=== PATIENT | male | born 2000 | race Caucasian/White ===

== ENCOUNTER 2020-05-16 11:35 | Emergency (ER) | payer BC, SELFPAY ==
[2020-05-16 11:38] VITALS: BP 151/105; PULSE 97; RESP 18; TEMP 35.9; O2SAT 100
--- NOTE | 2020-05-16 11:55 | PC.NURSE ---
Spoke with [place] poison control they recommended a full decontamination shower to 15 min. ADOLFO Alvarado notified.
--- NOTE | 2020-05-16 12:25 | PC.NURSE ---
Pts clothing removed and taken to decontamination shower and rinsed with soap and water for 15min. Pt placed in clean gown and socks. Denies any irritation to eyes. Mild tingling noted to tongue
--- NOTE | 2020-05-16 13:14 | ED.GENADULT ---
HPI - General Adult General Chief complaint: Environmental Exposure Stated complaint: weed killer exposure Time Seen by Provider: 05/16/20 12:02 Source: patient Mode of arrival: ambulatory Limitations: no limitations History of Present Illness HPI narrative: This patient is a 20 year old male who presents for evaluation of chemical exposure. PAtient was working and the container of weed killer ruptured. THis caused the chemical to get onto his clothes and his face. He reports mild sense of tongue ad mouth feel care manager than normal. HE denies eye irritation or blurred vision. He denies chest pain or sob. On arrival to ER , nursing staff called poison control and patient was decontaminated with a shower for 15 minutes. The chemical was found to be 43% glyphosate Plus [place] Preventer. Related Data Allergies Allergy/AdvReac Type Severity Reaction Status Date / Time No Known Allergies Allergy Unverified 01/04/19 16:46 Review of Systems Review of Systems: All systems reviewed & are unremarkable except as noted in HPI and below PMFSH Past Medical History Medical History (Updated 05/16/20 @ 13:21 by Domenica Morales MD) Patient denies medical problems Surgical History Surgical History (Updated 05/16/20 @ 13:18 by Domenica Morales MD) No history of previous surgery Social History Social History (Updated 05/16/20 @ 13:18 by Domenica Morales MD) Smoking status: Never smoker Alcohol intake: never Gender identity (if verbalized by the patient): Male Exam Narrative: Exam Narrative: GENERAL: Well-appearing, well-nourished, and in no acute distress.obese HEAD: Normocephalic, atraumatic EYES: PERRLA and EOMI, conjunctiva clear without discharge NOSE: Nares clear, no rhinorrhea or epistaxis THROAT:Mucous membranes moist, Oropharynx normal without erythema, exudate, peritonsillar swelling or fluctuance NECK: Supple, without lymphadenopathy or mass RESPIRATORY: No respiratory distress, Airway patent, Respirations non-labored, Clear to auscultation without rales, rhonchi or wheeze HEART: Regular rate and rhythm. No murmur heard. Normal peripheral pulses. ABDOMEN: Soft, nontender, nondistended, normal active bowel sounds. No masses. No rebound or guarding, No organomegaly. EXTREMITIES: No edema, normal strength with full range of motion. SKIN: Warm, dry, normal color without rash NEURO: Alert and oriented x3. CN 2-12 grossly intact. No focal deficits. PSYCH: Normal mood and affect. Course Reevaluation(s) Reevaluation #1: PAtient has no complaints. He has normal visual acuity with no eye complaints. Date: 05/16/20 Time: 13:18 Vital Signs Vital signs: Vital Signs Temperature 96.6 F L 05/16/20 11:38 Pulse Rate 97 05/16/20 11:38 Respiratory Rate 18 05/16/20 11:38 Blood Pressure 151/105 H 05/16/20 11:38 Pulse Oximetry 100 05/16/20 11:38 Temperature 98 F 05/16/20 13:28 Pulse Rate 70 05/16/20 13:28 Respiratory Rate 18 05/16/20 13:28 Blood Pressure 142/86 H 05/16/20 13:28 Pulse Oximetry 97 05/16/20 13:28 Medical Decision Making Vital Signs Vital Signs: Vital Signs Temperature 96.6 F L 05/16/20 11:38 Pulse Rate 97 05/16/20 11:38 Respiratory Rate 18 05/16/20 11:38 Blood Pressure 151/105 H 05/16/20 11:38 Pulse Oximetry 100 05/16/20 11:38 Temperature 98 F 05/16/20 13:28 Pulse Rate 70 05/16/20 13:28 Respiratory Rate 18 05/16/20 13:28 Blood Pressure 142/86 H 05/16/20 13:28 Pulse Oximetry 97 05/16/20 13:28 Discharge Plan Discharge Clinical Impression: Chemical exposure Patient Disposition: Home, Self-Care Condition: Stable Instructions: Antibiotic Form, Chemical Eye Apple (ED), Chemical Skin Burn (ED) Additional Instructions: If this occurs again, remove clothing and wash out your eyes. Follow up with your primary care physician as needed. Follow-up/Referrals: PHYSICIAN,SUPERVISOR OF COMMUNICATIONS [Primary Care Provider] -
[2020-05-16 13:28] VITALS: BP 142/86; PULSE 70; RESP 18; TEMP 36.6; O2SAT 97
== END 2020-05-16 13:29 | disposition home or self-care (01) ==
PROVIDERS: Emergency Provider General Practice
DX: Z57.4 Occupational exposure to toxic agents in agriculture (principal)
CPT/HCPCS: 99281

== ENCOUNTER 2021-05-24 01:22 | Emergency (ER) | payer OTHER, SELFPAY ==
--- NOTE | ~2021-05-24 | XR_ITS ---
XR forearm RT 2V DATE: 05/24/2021 02:13 INDICATION: Auger fell on arm. Diffuse forearm pain and ecchymosis TECHNIQUE: AP and lateral views COMPARISON: None FINDINGS: No fracture or dislocation, periosteal reaction or bone destruction. Normal alignment at th e elbow and wrist joints. No subcutaneous emphysema or radiopaque soft tissue foreign body. IMPRESSION: Negative Reviewed, dictated and finalized at location A. IMPRESSION: Negative
--- NOTE | ~2021-05-24 | XR_ITS ---
XR forearm LT 2V DATE: 05/24/2021 02:13 INDICATION: Auger fell on arm. Diffuse forearm pain, ecchymosis. TECHNIQUE: AP and lateral views COMPARISON: None FINDINGS: No fracture or dislocation, periosteal reaction or bone destruction. Normal alignment at th e elbow and wrist joint. No radiopaque foreign body or subcutaneous emphysema is detected. IMPRESSION: Negative Reviewed, dictated and finalized at location A. IMPRESSION: Negative
[2021-05-24 01:23] VITALS: BP 136/80; PULSE 80; RESP 18; TEMP 36.3; O2SAT 100
--- NOTE | 2021-05-24 01:47 | ED.UPPEXIN ---
HPI - Extremity Injury (Upper) General Chief Complaint: Extremity Injury, Upper Stated Complaint: norman arm injuries Time Seen by Provider: 05/24/21 01:43 Source: patient History of Present Illness HPI narrative: Patient was at work when he slipped and fell and had 3 augers fall onto his arms. He reports pain to his bilateral arms where the augers hit him pain is achy, constant, worse with moving his arms. 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 Denies any focal areas of numbness or weakness. Related Data Home Medications Medication Instructions Recorded Confirmed No Home Medications 05/24/21 05/24/21 Allergies Allergy/AdvReac Type Severity Reaction Status Date / Time peanut Allergy Difficulty Verified 05/24/21 01:31 Breathing Review of Systems Review of Systems: CONSTITUTIONAL: Denies fever, chills, or sweats. EYES: Denies visual changes, redness, or discharge. CARDIOVASCULAR: Denies chest pain, palpitations, or edema. RESPIRATORY: Denies cough or dyspnea. GASTROINTESTINAL: Denies abdominal pain, nausea, vomiting, or diarrhea. SKIN: Denies rash or itching. MUSCULOSKELETAL: Denies back pain, joint pain, or myalgia. NEUROLOGIC: Denies headache, numbness, dizziness, or weakness. [facility] Past Medical History Medical History Patient denies medical problems Surgical History Surgical History No history of previous surgery Social History Social History Smoking status: Never smoker Alcohol intake: never Gender identity (if verbalized by the patient): Male Exam Narrative: GENERAL: Well-appearing, well-nourished, and in no acute distress. HEAD: Normocephalic, atraumatic. EYES: PERRLA and EOMI. ENT: Nares clear, no rhinorrhea or epistaxis. Mucous membranes moist. NECK: Supple. No masses. 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 SKIN: Warm, dry, no rash. NEURO: No focal deficits. Alert and oriented x3. PSYCH: Normal mood and affect. Course Reevaluation(s) Reevaluation #1: Patient resting comfortably imaging results reviewed with patient Date: 05/24/21 Time: 02:36 Vital Signs Vital signs: Vital Signs Temperature 36.3 C L 05/24/21 01:23 Pulse Rate 80 05/24/21 01:23 Respiratory Rate 18 05/24/21 01:23 Blood Pressure 136/80 05/24/21 01:23 Pulse Oximetry 100 05/24/21 01:23 Temperature 36.3 C L 05/24/21 01:23 Pulse Rate 75 05/24/21 03:57 Respiratory Rate 16 05/24/21 03:57 Blood Pressure 146/83 H 05/24/21 03:57 Pulse Oximetry 100 05/24/21 03:57 MDM - Extremity Injury (Upper) MDM Narrative Medical decision making narrative: H&P as above, vss, pt looks clinically well, exam with ecchymosis on the forearm distal strength and is neurovascularly intact, imaging clinically unremarkable, additional labs/img considered, symptomatic relief available as needed, on reevaluation pt continues to looks clinically well. Suspect contusion, dns fracture major neurovascular compromise. plan to tx/monitor as op w/ pcm f/u findings/plan discussed with pt, pt agree/comfortable with plan, return precautions given Imaging Data Radiologist's impression: Impressions Forearm X-Ray 05/24/21 02:19 IMPRESSION: Negative Forearm X-Ray 05/24/21 02:21 IMPRESSION: Negative Discharge Plan Discharge Clinical Impression: Contusion Qualifiers: Encounter type: initial encounter Contusion area: forearm Laterality: unspecified laterality Qualified Code(s): S50.10XA - Contusion of unspecified forearm, initial encounter Patient Disposition: Home, Self-Care Condition:
[2021-05-24 03:57] VITALS: BP 146/83; PULSE 75; RESP 16; O2SAT 100
== END 2021-05-24 03:59 | disposition home or self-care (01) ==
PROVIDERS: Emergency Provider Emergency Medicine; PCP Family Medicine
DX: S50.12XA Contusion of left forearm, initial encounter (principal); S50.11XA Contusion of right forearm, initial encounter; W01.0XXA Fall on same level from slipping, tripping and stumbling without subsequent striking against object, initial encounter; W20.8XXA Other cause of strike by thrown, projected or falling object, initial encounter
CPT/HCPCS: 73090; 99284

== ENCOUNTER 2025-06-27 17:07 | Emergency (ER) | payer OTHER, SELFPAY ==
--- NOTE | ~2025-06-27 | XR_ITS ---
X-rays right tibia fibula Indication: Trauma Comparison: None Technique: 2 views right tibia fibula, 4 films Findings/Impression: 1. No fracture or other acute bony abnormality. 2. Thin metallic foreign body lateral to distal lateral femoral condyle. Reviewed, dictated and finalized at location R.
--- NOTE | ~2025-06-27 | US_ITS ---
EXAMINATION:US venous doppler LE RT INDICATION:Right lower extremity pain TECHNIQUE: Multiple grayscale, color flow and Doppler images of the right lower extremity deep venous systems were obtained and reviewed. COMPARISON:No prior studies for comparison. FINDINGS: The common femoral, superficial femoral and popliteal veins demonstrate normal respiratory variation, augmentation and compressibility. Color flow is also seen within the posterior tibial, peroneal, greater saphenous and profunda veins. IMPRESSION: 1: No lower extremity deep venous thrombosis. Reviewed, dictated and finalized at location O.
[2025-06-27 17:16] VITALS: BP 151/90; PULSE 93; RESP 20; TEMP 36.9; O2SAT 97
--- NOTE | 2025-06-27 18:22 | ED_ITS ---
HPI - Extremity Injury (Lower) General Chief Complaint: Extremity Injury, Lower <Zoe Gallego PA-C - Last Filed: 06/27/25 18:27> Stated Complaint: right knee pain after hit by log <Zoe Gallego PA-C - Last Filed: 06/27/25 18:27> Time Seen by Provider: 06/27/25 18:22 <Zoe Gallego PA-C - Last Filed: 06/27/25 18:27> Focused HPI: Patient is a 25-year-old male who presents the ED with report of right lower leg pain. Patient reports having pain throughout his right lower leg since last week. He states he was hit by a wooden log of his right lower leg. Has had pain swelling, worse with ambulation. Denies numbness. Denies any other injuries. GENERAL: Well-appearing, morbidly obese with BMI of 62.2, and in no acute distress. HEAD: Normocephalic, atraumatic. CHEST: Clear to auscultation. ?No respiratory distress. HEART: Regular rate and rhythm.? MSK: Mild TTP in R lower medial leg. Slight bruising. No tenderness over R knee. NEURO: ?Alert and oriented x3. Patient screened in triage and initial orders placed.? ?Additional care and disposition to be based upon?diagnostic testing and treatment. <Zoe Gallego PA-C - Last Filed: 06/27/25 18:27> Source: patient <Zoe Gallego PA-C - Last Filed: 06/27/25 18:27> Mode of arrival: ambulatory <Zoe Gallego PA-C - Last Filed: 06/27/25 18:27> Limitations: no limitations <Zoe Gallego PA-C - Last Filed: 06/27/25 18:27> History of Present Illness HPI Narrative: per HPI <Debbi Mendoza MD - Last Filed: 06/28/25 04:18> Related Data Home Medications: Home Medications ?Medication ?Instructions ?Recorded ?Confirmed ?Last Taken ?Type No Home Medications 05/24/21 05/24/21 U nknown History <Zoe Gallego PA-C - Last Filed: 06/27/25 18:27> Allergies/Adverse Reactions: Allergies Allergy/AdvReac Type Severity Reaction Status Date / Time peanut Allergy Difficulty Verified 05/24/21 01:31 Breathing <Zoe Gallego PA-C - Last Filed: 06/27/25 18:27> Review of Systems Review of Systems: All systems reviewed & are unremarkable except as noted in HPI and below <Debbi Mendoza MD - Last Filed: 06/28/25 04:18> [facility] Past Medical History Medical History: Medical History Patient denies medical problems <Zoe Gallego PA-C - Last Filed: 06/27/25 18:27> Surgical History Surgical History: Surgical History No history of previous surgery <Zoe Gallego PA-C - Last Filed: 06/27/25 18:27> Social History Social History: Social History Smoking status: Never smoker Alcohol intake: never Gender identity (if verbalized by the patient): Male <Zoe Gallego PA-C - Last Filed: 06/27/25 18:27> Exam Narrative: EXAMINATION OF ORGAN SYSTEMS/BODY AREAS: Constitutional: Vital signs per nursing GENERAL:[No acute distress, non-toxic appearing.] HEAD: Normal with no signs of head trauma. EYES: EOMI, conjunctiva normal ENT: Hearing grossly intact LUNGS: Nonlabored breathing. HEART: [Regular rate and rhythm] ABD: [Soft], [nontender to palpation] EXT: Normal range of motion SKIN: Some bruising to the leg NEURO: [Alert and oriented x 3. No gross focal sensory or strength deficits.] PSYCH: Normal affect <Debbi Mendoza MD - Last Filed: 06/28/25 04:18> Course Vital Signs Vital signs: Vital Signs Temperature 98.5 F 06/27/25 17:16 Pulse Rate 93 06/27/25 17:16 Respiratory Rate 20 06/27/25 17:16 Blood Pressure 151/90 H 06/27/25 17:16 Pulse Oximetry 97 06/27/25 17:16 Oxygen Delivery Room Air 06/27/25 17:16 Temperature 98.2 F 06/27/25 19:19 Pulse Rate 89 06/27/25 20:05 Respiratory Rate 16 06/27/25 20:05 Blood Pressure 153/62 H 06/27/25 20:05 Pulse Oximetry 99 06/27/25 20:05 Oxygen Delivery Room Air 06/27/25 17:16 <Zoe Gallego PA-C - Last Filed: 06/27/25 18:27> Vital Signs Temperature 98.5 F 06/27/25 17:16 Pulse Rate 93 06/27/25 17:16 Respiratory Rate 20 06/27/25 17:16 Blood Pressure 151/90 H 06/27/25 17:16 Pulse Oximetry 97 06/27/25 17:16 Oxygen Delivery Room Air 06/27/25 17:16 Temperature 98.2 F 06/27/25 19:19 Pulse Rate 89 06/27/25 20:05 Respiratory Rate 16 06/27/25 20:05 Blood Pressure 153/62 H 06/27/25 20:05 Pulse Oximetry 99 06/27/25 20:05 Oxygen Delivery Room Air 06/27/25 17:16 <Debbi Mendoza MD - Last Filed: 06/28/25 04:18> MDM - Extremity Injury (Lower) MDM Narrative Medical decision making narrative: MSE by KASEY in triage. <Zoe Gallego PA-C - Last Filed: 06/27/25 18:27> MSE by KASEY in triage. // Patient presents here with bruising and pain to his right lower leg, DVT ultrasound and x-ray of his leg are negative for acute abnormality or DVT. Patient counseled on care instructions including use ice and elevation and following to PCP as needed. Agreeable to plan with return precautions <Debbi Mendoza MD - Last Filed: 06/28/25 04:18> Discharge Plan Discharge Clinical Impression: Contusion of leg, right <Zoe Gallego PA-C - Last Filed: 06/27/25 18:27> Patient Disposition: Home <HIGINIO Nevarez Last Filed: 06/27/25 18:27> Condition: Stable <Zoe Gallego PA-C - Last Filed: 06/27/25 18:27> Instructions: Hematoma (ED) <HIGINIO Nevarez Last Filed: 06/27/25 18:27> Additional Instructions: Please follow up with a primary care doctor; you can use ice and elevate your leg. You can always return for any further issues. <Zoe Gallego PA-C - Last Filed: 06/27/25 18:27> Patient Language: Moroccan <Zoe Gallego PA-C - Last Filed: 06/27/25 18:27> Prescriptions: No Action No Home Medications <Zoe Gallego PA-C - Last Filed: 06/27/25 18:27> Follow-up/Referrals: Mira Abdul MD [Physician, Family Practice] - 2 Days PHYSICIAN,RADIOLOGIC TECHNOLOGY PROGRAM DIRECTOR [Primary Care Provider, Internal Medicine] <Zoe Gallego PA-C - Last Filed: 06/27/25 18:27>
[2025-06-27 19:19] VITALS: BP 160/82; PULSE 85; RESP 16; TEMP 36.8; O2SAT 99
--- NOTE | 2025-06-27 19:42 | PC.NURSE ---
MD Mendoza at bedside
[2025-06-27 20:05] VITALS: BP 153/62; PULSE 89; RESP 16; O2SAT 99
== END 2025-06-27 20:10 | disposition home or self-care (01) ==
LOC: ANHED 19:45
PROVIDERS: Emergency Provider Emergency Medicine
DX: S80.11XA Contusion of right lower leg, initial encounter (principal); E66.01 Morbid (severe) obesity due to excess calories; Z68.44 Body mass index [BMI] 60.0-69.9, adult; W22.8XXA Striking against or struck by other objects, initial encounter
CPT/HCPCS: 73590; 93971; 99284

== ENCOUNTER 2025-09-21 09:03 | Emergency (ER) | payer OTHER, SELFPAY ==
[2025-09-21 09:09] VITALS: BP 176/92; PULSE 96; RESP 20; TEMP 36.4; O2SAT 99
--- NOTE | 2025-09-21 09:45 | ED_ITS ---
HPI - Extremity Problem General Chief complaint: Extremity Problem,Nontraumatic Stated complaint: R ANKLE PAIN Time Seen by Provider: 09/21/25 09:07 History of Present Illness HPI Narrative: Patient is a 25-year-old male who presents to the ER with complaints of right knee pain, which he has had evaluation for in this ER previously. 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 Patient reports he started experiencing bruising on his right lower leg approximately 1 week after the incident. Since that time patient endorses pain when he is standing. Was evaluated here back in June 2025, when an ultrasound and x-ray portable performed. Both of these were negative. Patient reports he is only experiencing pain when he stands. He also endorses a 1 month history of rectal bleeding but declines a rectal exam. Patient is requesting a note providing him with restrictions at work. He reports he does not have a primary care provider, nor has he ever seen an orthopedic surgeon. Patient denies any acute pain, new edema, new decreased range of motion, recent fevers or significant redness. Related Data Home Medications ?Medication ?Instructions ?Recorded ?Confirmed ?Last Taken ?Type No Home Medications 05/24/21 05/24/21 U nknown History Allergies Allergy/AdvReac Type Severity Reaction Status Date / Time peanut Allergy Difficulty Verified 09/21/25 09:09 Breathing Review of Systems Review of Systems: All systems reviewed & are unremarkable except as noted in HPI and below PMFSH Past Medical History Medical History Patient denies medical problems Surgical History Surgical History No history of previous surgery Social History Social History Smoking status: Never smoker Alcohol intake: never Gender identity (if verbalized by the patient): Male Exam Narrative: GENERAL: Well appearing, morbidly obese, non-toxic, in no acute distress. HEAD: Normocephalic, atraumatic. NECK: Supple. No adenopathy, no masses. RESPIRATORY: Airway patent, respirations nonlabored. Clear to auscultation bilaterally, no rales, rhonchi, wheezing. CARDIOVASCULAR: Regular rate and rhythm without murmurs, rubs, or gallops. Peripheral pulses 2+ and equal bilaterally. ABDOMINAL: Soft, nontender, nondistended, no hepatosplenomegaly. Normoactive BS. MUSCULOSKELETAL: Moves all extremities. Strength/ROM intact without gross deformities. SKIN: Warm, dry, normal color. No rashes. Mild bruising to right lower extremity below-knee. NEURO: A&O X3. Speech clear. Cranial nerves II-XII intact. No ataxic movements. PSYCHIATRIC: Appropriate mood and affect. Normal interaction. Course Vital Signs Vital signs: Vital Signs Temperature 36.4 C 09/21/25 09:09 Pulse Rate 96 09/21/25 09:09 Respiratory Rate 20 09/21/25 09:09 Blood Pressure 176/92 H 09/21/25 09:09 Pulse Oximetry 99 09/21/25 09:09 Oxygen Delivery Room Air 09/21/25 09:09 Temperature 36.4 C 09/21/25 09:09 Pulse Rate 96 09/21/25 09:09 Respiratory Rate 20 09/21/25 09:09 Blood Pressure 176/92 H 09/21/25 09:09 Pulse Oximetry 99 09/21/25 09:09 Oxygen Delivery Room Air 09/21/25 09:09 MDM MDM Narrative Medical decision making narrative: Patient is a 25-year-old male who presents to the ER with complaints of right knee pain, which he has had evaluation for in this ER previously. 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 Patient reports he started experiencing bruising on his right lower leg approximately 1 week after the incident. Since that time patient endorses pain when he is standing. Was evaluated here back in June 2025, when an ultrasound and x-ray portable performed. Both of these were negative. Patient reports he is only experienci ng pain when he stands. He also endorses a 1 month history of rectal bleeding but declines a rectal exam. Patient is requesting a note providing him with restrictions at work. He reports he does not have a primary care provider, nor has he ever seen an orthopedic surgeon. Patient denies any acute pain, new edema, new decreased range of motion, recent fevers or significant redness. Labs Ordered: Patient declined Imaging Ordered: Patient declines Medications Ordered: Patient declined I a.m. not having pain right now. I only have pain when I stand. Diagnosis: Unspecified pain to RLE Consults: PCP, orthopedic surgery (Dr. Mathis) Patient Education/Shared MDM: SR. OPERATIONS MANAGER offered to repeat tests on patient, but he declined. He requests SR. OPERATIONS MANAGER put him on work restrictions, but it was explained to patient that long-term work restrictions could not be placed without a more specific diagnosis. Patient reports I probably need a primary care provider. He will be given the name of a primary care provider and advised to follow-up as soon as possible. He will not be discharged home with any new prescriptions, as patient reports he is already taking Tylenol and ibuprofen. Patient continues to decline pain medication administration here in the ER. Strict return precautions provided. Patient verbalized understanding and is in agreement with plan. Vital signs stable at time of discharge. All questions answered. Differential Diagnosis Differential Diagnosis: Right knee fracture, right knee dislocation, right knee DVT, right knee sprain Discharge Plan Discharge Clinical Impression: Chronic pain of right knee, Pain and swelling of right knee Patient Disposition: Home Condition: Stable Instructions: Antibiotic Form, Knee Sprain (ED), P.R.I.C.E. Treatment (ED) Additional Instructions: Please return to the ER with any worsening symptoms. Follow-up with primary care provider and orthopedic surgery as soon as possible for further evaluation. Take all medications as prescribed, including regularly scheduled medications. You may take Tylenol and/or ibuprofen for pain control. Please keep your right leg elevated when relating down. Patient Language: Setswana Prescriptions: No Action No Home Medications Follow-up/Referrals: Sarwat Hernández MD [Physician, Orthopedics] PHYSICIAN,MIDDLE SCHO[employer] HISTORY TEACHER [Primary Care Provider, Internal Medicine] Theodore Acuña MD [Physician, Family Practice] Referral Note: primary care provider Stand Alone Forms: Work/School Release IP Time of Disposition: 09:58
[2025-09-21 10:16] VITALS: BP 166/100; PULSE 88; RESP 18; TEMP 36.6; O2SAT 98
== END 2025-09-21 10:15 | disposition home or self-care (01) ==
LOC: ANHED 10:02
PROVIDERS: Emergency Provider Registered Nurse
DX: M25.561 Pain in right knee (principal); G89.29 Other chronic pain; M25.461 Effusion, right knee
CPT/HCPCS: 99281